=== PATIENT | female | born 1990 | race Caucasian/White ===

== ENCOUNTER 2018-05-09 11:00 | Emergency (ER) | payer MEDICAID, OTHER ==
[~2018-05-09] VITALS: Ht 160 cm; Wt 149.7 kg
[~2018-05-09 11:00] MED LIST: ACHD5005 PO; BISA5TAB20 PO; CETI10TA17 PO; DCS100C PO; IBP600T1 PO; METR500T PO; ONDA-42 PO; ONDAN4ODT PO; OXYC-12 PO; PREN1TAB39 PO; PRM25T PO; RNT150T PO
[2018-05-09] MEDS ORDERED: fentaNYL INJECTION 100 MCG/2 ML AMP IVP STA (11:49)
[2018-05-09] MEDS ORDERED: NS IV 1000 ML 1,000 ML IV ONE (11:49)
[2018-05-09 12:01] LABS: BASOPHILS % (AUTO) 0 % (0-10); EOSINOPHILS # (AUTO) 0.3 10^3/uL (0.0-0.3); EOSINOPHILS % (AUTO) 3 % (0-10); HEMATOCRIT 43 % (35-52); HEMOGLOBIN 14.8 G/DL (11.5-16.0); LYMPHOCYTES # (AUTO) 3.7 X 10^3 (1.0-4.0); LYMPHOCYTES % (AUTO) 32 % (12-44); MEAN CORPUSCULAR HEMOGLOBIN 31 PG (25-34); MEAN CORPUSCULAR HGB CONC 35 G/DL (32-36); MEAN CORPUSCULAR VOLUME 90 FL (80-99); MEAN PLATELET VOLUME 10.9 FL (7.4-10.4); MONOCYTES # (AUTO) 0.8 X 10^3 (0.0-1.0); MONOCYTES % (AUTO) 7 % (0-12); NEUTROPHILS # (AUTO) 6.7 X 10^3 (1.8-7.8); NEUTROPHILS % (AUTO) 58 % (42-75); PLATELET COUNT 299 10^3/uL (130-400); RED BLOOD COUNT 4.74 10^6/uL (4.35-5.85); RED CELL DISTRIBUTION WIDTH 13.5 % (10.0-14.5); WHITE BLOOD COUNT 11.6 10^3/uL (4.3-11.0)
[2018-05-09 12:02] LABS: BILIRUBIN,URINE NEGATIVE (NEGATIVE); CLARITY,URINE CLEAR; COLOR,URINE YELLOW; GLUCOSE, URINE (UA) NEGATIVE (NEGATIVE); KETONES,URINE NEGATIVE (NEGATIVE); LEUKOCYTE ESTERASE ,URINE NEGATIVE (NEGATIVE); NITRITE,URINE NEGATIVE (NEGATIVE); PH,URINE 5 (5-9); PROTEIN,URINE 1+ (NEGATIVE); UROBILINOGEN,URINE NORMAL (NORMAL)
--- NOTE | 2018-05-09 12:06 | ED Abdominal Pain ---
General Chief Complaint: Abdominal/GI Problems Stated Complaint: ABD PAIN Nursing Triage Note: pt presents to ed with complaints of l upper abdominal pain starting this am. pt reports she has had daily nausea and vomiting in the morning for years but has never seen the doctor for it. Sepsis Screen: No Definite Risk Source of Information: Patient Exam Limitations: No Limitations (STEVE GOLDBERG) History of Present Illness Date Seen by Provider: May 09, 2018 Time Seen by Provider: 11:47 Initial Comments Seen and evaluated. Patient presents for LLQ pain that began upon waking at 1000. The patient describes the pain as a constant dull pain that radiates to her left lower back and sporadically intensifies with a cramping sensation. She took a hot shower without relief and has found that nothing today has made it worse. Patient is tender to palpation of the right upper quadrant. She is diaphoretic and admits sensitivity to light and eye tearing. She states that she has vomited every morning for the last three years. She denies nausea, diarrhea, constipation, or vaginal discharge. She is currently sexually active in a monogamous relationship. Patient has had a previous cesarian section. Patient had a spontaneous last November, after which her menstrual cycles have stopped. Timing/Duration: 1-3 Hours Severity/Quality: Moderate, Dull, Throbbing Location: LLQ Radiation: Back (Left lower back) Activities at Onset: Rest (Awoke with pain) Associated Symptoms: Back Pain; No Chest Pain; Diaphoresis; No Fever/Chills; Headache (Sensitivity to light), Shortness of Air (Finds it harder to breathe when pain intensifies) (STEVE GOLDBERG STUDENT) Allergies and Home Medications Allergies Coded Allergies: No Known Drug Allergies (Unverified , 12/18/10) Home Medications Hydrocodone Bit/Acetaminophen 1 Each Tablet, 1-2 EACH PO Q4H PRN for PAIN Prescribed by: ZEUS JACOBSON on 12/19/15 1455 Levofloxacin 500 Mg Tablet, 500 MG PO DAILY Prescribed by: THERESA SALINAS on 05/09/18 1358 Vits W-Ca,Fe,Fa(<1MG) 1 Each Tablet, 1 EACH PO DAILY, (Reported) Patient Home Medication List Home Medication List Reviewed: Yes (STEVE GOLDBERG) Home Medication List Reviewed: Yes (THERESA SALINAS MD) Review of Systems Constitutional: diaphoresis EENTM: Eye Tearing Respiratory: Shortness of Air (Shortness of breath with increases to pain.) Cardiovascular: No Symptoms Reported Gastrointestinal: Abdominal Pain; Denies Constipated, Denies Diarrhea, Denies Nausea, Denies Rectal Bleeding; Vomiting Genitourinary: Denies Burning, Denies Discharge, Denies Drainage Musculoskeletal: back pain Skin: no symptoms reported Psychiatric/Neurological: Headache (Sensitivity to light) Endocrine: Excessive Sweating Hematologic/Lymphatic: No Symptoms Reported (STEVE GOLDBERG) Constitutional: see HPI; No fever Respiratory: Denies Cough Cardiovascular: Denies Chest Pain, Denies Palpitations Gastrointestinal: Abdominal Pain, Vomiting Musculoskeletal: back pain; No neck pain Skin: no symptoms reported Psychiatric/Neurological: No Symptoms Reported (THERESA SALINAS MD) All Other Systems Reviewed Negative Unless Noted: Yes (THERESA SALINAS MD) Past Knavwlw-Fjdxgp-Fdswpc Hx Past Med/Social Hx: Reviewed Nursing Past Med/Soc Hx (THERESA SALINAS MD) Patient Social History Alcohol Use: Denies Use Recreational Drug Use: No Smoking Status: Former Smoker Type Used: Cigarettes Former Smoker, Quit: May 03, 2018 Recent Foreign Travel: No Contact w/Someone Who Travel: No Recent Infectious Disease Expo: No Recent Hopitalizations: Yes Physical Abuse: No Sexual Abuse: No Mistreated: No Fear: No (STEVE GOLDBERG) Immunizations Up To Date Tetanus Booster (TDap): Less than 5yrs PED Vaccines UTD: No Date of Influenza Vaccine: Jul 07, 2014 (STEVE GOLDBERG) Past Medical History Surgeries: Yes (KNEE SURGERY/JAW SURGERY, C/S X2) Section Respiratory: No Cardiac: No Neurological: No Reproductive Disorders: Yes (PSOS ) Female Reproductive Disorders: Menstrual Problems (Has not had menstrual cycle since November 2016) Gastrointestinal: No Musculoskeletal: No Endocrine: No Loss of Vision: Denies Cancer: No Psychosocial: No Nursing Suicide Risk Score: 0 Integumentary: No (ECZEMA ON NECK) Eczema Blood Disorders: No (STEVE GOLDBERG) Family Medical History Reviewed Nursing Family Hx (THERESA SALINAS MD) No Family History of: AIDS Abdominal aortic aneurysm Alcoholism Alzheimer's disease Arthritis Asthma Cardiovascular disease Cataracts Colon cancer Completed stroke Dementia Diabetes mellitus Drug abuse Hypertension Kidney disease Myocardial infarction Parkinson's disease Prostate cancer Psychosocial problem Respiratory disorder Seizure disorder Thyroid disease Physical Exam Vital Signs Vital Signs - First Documented 05/09/18 11:25 Temp 96.2 Pulse 60 Resp 20 B/P (MAP) 136/72 (93) Pulse Ox 96 (THERESA SALINAS MD) Vital Signs Capillary Refill : Less Than 3 Seconds (STEVE GOLDBERG STUDENT) Height/Weight/BMI Height: 5'3.00" Weight: 330lbs. oz. 149.868473ep; 49.21 BMI Method:Stated General Appearance: moderate distress, obese HEENT: photophobia; No pharyngeal erythema, No tonsillar exudate Neck: No lymphadenopathy (R), No lymphadenopathy (L) Cardiovascular: normal peripheral pulses Peripheral Pulses: 2+ Dorsalis Pedis (R), 2+ Left Dors-Pedis (L), 2+ Radial Pulses (R), 2+ Radial Pulses (L) Gastrointestinal: No non tender, No abnormal bowel sounds, No guarding; tenderness (tender to palpation RUQ) Skin: diaphoresis (STEVE GOLDBERG STUDENT) General Appearance: WD/WN, obese Respiratory: lungs clear, normal breath sounds Cardiovascular: regular rate, rhythm, no murmur Extremities: non-tender, normal inspection Back: normal inspection, no CVA tenderness, no vertebral tenderness Neurologic/Psychiatric: alert, oriented x 3 Skin: normal color (THERESA SALINAS MD) Progress/Results/Core Measures Results/Orders Lab Results Laboratory Tests Test 05/09/18 11:19 Range/Units White Blood Count 11.6 H 4.3-11.0 10^3/uL Red Blood Count 4.74 4.35-5.85 10^6/uL Hemoglobin 14.8 11.5-16.0 G/DL Hematocrit 43 35-52 % Mean Corpuscular Volume 90 80-99 FL Mean Corpuscular Hemoglobin 31 25-34 PG Mean Corpuscular Hemoglobin Concent 35 32-36 G/DL Red Cell Distribution Width 13.5 10.0-14.5 % Platelet Count 299 130-400 10^3/uL Mean Platelet Volume 10.9 H 7.4-10.4 FL Neutrophils (%) (Auto) 58 42-75 % Lymphocytes (%) (Auto) 32 12-44 % Monocytes (%) (Auto) 7 0-12 % Eosinophils (%) (Auto) 3 0-10 % Basophils (%) (Auto) 0 0-10 % Neutrophils # (Auto) 6.7 1.8-7.8 X 10^3 Lymphocytes # (Auto) 3.7 1.0-4.0 X 10^3 Monocytes # (Auto) 0.8 0.0-1.0 X 10^3 Eosinophils # (Auto) 0.3 0.0-0.3 10^3/uL Basophils # (Auto) 0.0 0.0-0.1 10^3/uL Urine Color YELLOW Urine Clarity CLEAR Urine pH 5 5-9 Urine Specific Elsie 1.025 H 1.016-1.022 Urine Protein 1+ H NEGATIVE Urine Glucose (UA) NEGATIVE NEGATIVE Urine Ketones NEGATIVE NEGATIVE Urine Nitrite NEGATIVE NEGATIVE Urine Bilirubin NEGATIVE NEGATIVE Urine Urobilinogen NORMAL NORMAL MG/DL Urine Leukocyte Esterase NEGATIVE NEGATIVE Urine RBC (Auto) NEGATIVE NEGATIVE Urine RBC NONE /HPF Urine WBC 0-2 /HPF Urine Squamous Epithelial Cells 2-5 /HPF Urine Renal Epithelial Cells NONE /HPF Urine Crystals PRESENT H /LPF Urine Calcium Oxalate Crystals FEW H /LPF Urine Bacteria NEGATIVE /HPF Urine Casts PRESENT /LPF Urine Hyaline Casts 2-5 H /LPF Urine Mucus MODERATE H /LPF Urine Culture Indicated NO Sodium Level 137 135-145 MMOL/L Potassium Level 4.1 3.6-5.0 MMOL/L Chloride Level 106 98-107 MMOL/L Carbon Dioxide Level 22 21-32 MMOL/L Anion Gap 9 5-14 MMOL/L Blood Urea Nitrogen 7 7-18 MG/DL Creatinine 0.80 0.60-1.30 MG/DL Estimat Glomerular Filtration Rate > 60 BUN/Creatinine Ratio 9 Glucose Level 112 H 70-105 MG/DL Calcium Level 9.3 8.5-10.1 MG/DL Corrected Calcium 9.6 8.5-10.1 MG/DL Total Bilirubin 0.3 0.1-1.0 MG/DL Aspartate Amino Transf (AST/SGOT) 20 5-34 U/L Alanine Aminotransferase (ALT/SGPT) 21 0-55 U/L Alkaline Phosphatase 53 40-136 U/L Total Protein 6.7 6.4-8.2 GM/DL Albumin 3.6 3.2-4.5 GM/DL Lipase 32 8-78 U/L (THERESA SALINAS MD) My Orders Orders - THERESA SALINAS MD Cbc With Automated Diff (05/09/18 11:49) Comprehensive Metabolic Panel (05/09/18 11:49) Lipase (05/09/18 11:49) Ua Culture If Indicated (05/09/18 11:49) Urine Bedside (05/09/18 11:49) Saline Lock/Iv-Start (05/09/18 11:49) Ns Iv 1000 Ml (Sodium Chloride 0.9%) (05/09/18 11:49) Fentanyl Injection (Sublimaze Injection (05/09/18 11:49) Us Gallbladder [id number] (05/09/18 13:12) (THERESA SALINAS MD) Medications Given in ED Current Medications Medications Dose Ordered Sig/Cynthia Route Start Time Stop Time Status Last Admin Dose Admin Sodium Chloride 1,000 ml @ 0 mls/hr Q0M ONCE IV 05/09/18 11:49 05/09/18 11:55 DC 05/09/18 12:13 0 MLS/HR (THERESA SALINAS MD) Vital Signs/I&O 05/09/18 11:25 Temp 96.2 Pulse 60 Resp 20 B/P (MAP) 136/72 (93) Pulse Ox 96 (THERESA SALINAS MD) Blood Pressure Mean: 93 Progress Progress Note : Progress Note Seen and evaluated the patient and agree with above except as indicated. I have directed the plan of care. Patient is here with complaints of vomiting and left sided abdominal pain but actually appears to be more right upper quadrant, pain. Does note that she's had vomiting daily for years and also has had some change in stools recently with orange color stool. Has noted that she has increased right upper quadrant abdominal pain daily but does not appear to be associated with food but she is not sure. Denies fever currently. Physical exam does elicit mild right upper quadrant abdominal pain. Not significantly tender in the left side. IV, labs, UA, UCG ordered. Fentanyl 50 g IV ordered. Normal saline 1 L bolus. Patient doing a little better afterwards but still has the right upper quadrant abdominal pain. We will get a ultrasound of the right upper quadrant to evaluate gallbladder. 1345: Gallbladder ultrasound complete and multiple stones noted. I did discuss the case with Dr. Martin. He would like to have her do outpatient antibiotics and liquids and then follow-up with him this week for recheck and cholecystectomy soon. This was discussed with the patient and family and they agree. Discharged home with return precautions. Patient verbalize understanding instructions and agreement with plan. (THERESA SALINAS MD) Diagnostic Imaging Diagonstic Imaging: Ultrasound Plain Films/CT/US/NM/MRI: abdomen Comments VIA [facility]. [place], [place] NAME: SEAN [facility]EZMA [facility] REC#: [id number] PT STATUS: REG ER : 1990 PHYSICIAN: THERESA SALINAS MD ADMIT DATE: 05/09/18/ER Draft Date of Exam:05/09/18 US GALLBLADDER [id number] PROCEDURE: US Gallbladder. TECHNIQUE: Multiple real-time grayscale images were obtained over the right upper quadrant in various projections. INDICATION: Upper abdominal pain. FINDINGS: The liver is enlarged at 21 cm. No discrete liver mass is identified. The main portal vein is patent and shows normal directional flow. The gallbladder appears to be stone filled. No wall thickening is seen. No definite biliary ductal dilatation is seen. Pancreas is obscured by bowel gas. The right kidney is unremarkable. There is no ascites. IMPRESSION: 1. Hepatomegaly. 2. Stone-filled gallbladder. No definite wall thickening to suggest cholecystitis is seen, however. Dictated on workstation # [id number] Dict: 05/09/18 1357 Trans: 05/09/18 1403 [id number] Interpreted by: CRISTOBAL GRAHAM MD Electronically signed by: Reviewed: Reviewed by Me (THERESA SALINAS MD) Departure Impression Primary Impression: Cholelithiasis Qualified Codes: K80.20 - Calculus of gallbladder without cholecystitis without obstruction Disposition: 01 HOME, SELF-CARE Condition: Stable Departure-Patient Inst. Decision time for Depature: 13:55 (THERESA SALINAS MD) Referrals: PAIGE BARNES DO (PCP/Family) Primary Care Physician RAMYA MARITN DO Patient Instructions: Gallstones (DC) Add. Discharge Instructions: All discharge instructions reviewed with patient and/or family. Voiced understanding. Clear liquid or very light diet for the next 2-3 days. Follow-up with Dr. Martin in the next 2-3 days for recheck and further evaluation. Take medications as directed. You may take Tylenol/acetaminophen 1000 mg every 6 hours as needed for pain. Return for worse pain, fever, vomiting, weakness, breathing problems or other concerns as needed. Scripts Levofloxacin (Levofloxacin) 500 Mg Tablet 500 MG PO DAILY, #7 TAB 0 Refills Prov: THERESA SALINAS MD 05/09/18 Copy Copies To 1: RAMYA MARTIN JOSHUA MED STUDENT May 09, 2018 12:06 THERESA SALINAS MD May 09, 2018 13:17
[2018-05-09 12:16] LABS: BACTERIA,URINE NEGATIVE /HPF; CALCIUM OXALATE CRYSTALS,UR FEW /LPF; WBC,URINE 0-2 /HPF
[2018-05-09 12:22] LABS: ALANINE AMINOTRANSFERASE 21 U/L (0-55); ALBUMIN 3.6 GM/DL (3.2-4.5); ALKALINE PHOSPHATASE 53 U/L (40-136); BILIRUBIN,TOTAL 0.3 MG/DL (0.1-1.0); BUN/CREATININE RATIO 9; CALCIUM 9.3 MG/DL (8.5-10.1); CARBON DIOXIDE 22 MMOL/L (21-32); CHLORIDE 106 MMOL/L (98-107); GFR ESTIMATED > 60; GLUCOSE 112 MG/DL (70-105); LIPASE 32 U/L (8-78); POTASSIUM 4.1 MMOL/L (3.6-5.0); SODIUM 137 MMOL/L (135-145); TOTAL PROTEIN 6.7 GM/DL (6.4-8.2)
[2018-05-09] MEDS ORDERED: LEVO500T80 PO (13:58)
--- NOTE | 2018-05-09 14:04 | Diagnostic Imaging Report ---
PROCEDURE: US Gallbladder. TECHNIQUE: Multiple real-time grayscale images were obtained over the right upper quadrant in various projections. INDICATION: Upper abdominal pain. FINDINGS: The liver is enlarged at 21 cm. No discrete liver mass is identified. The main portal vein is patent and shows normal directional flow. The gallbladder appears to be stone filled. No wall thickening is seen. No definite biliary ductal dilatation is seen. Pancreas is obscured by bowel gas. The right kidney is unremarkable. There is no ascites. IMPRESSION: 1. Hepatomegaly. 2. Stone-filled gallbladder. No definite wall thickening to suggest cholecystitis is seen, however. Dictated by: Dictated on workstation # [id number]
[2018-05-09 14:22] VITALS: BP 123/47
[2018-05-18] MEDS ORDERED: DOCU-143 PO (12:30)
[2018-05-18] MEDS ORDERED: ACHD5005 PO (12:30)
== END 2018-05-09 14:22 | disposition home or self-care (01) ==
LOC: EDUNIT# 11:00 → ER 11:03
DX: K80.20 Calculus of gallbladder without cholecystitis without obstruction (principal); Z87.59 Personal history of other complications of pregnancy, childbirth and the puerperium; Z87.891 Personal history of nicotine dependence
CPT/HCPCS: 36415; 76705; 80053; 81000; 83690; 84703; 85025; 96361; 96374

== ENCOUNTER 2018-05-16 06:31 | Outpatient (CLI) | payer OTHER ==
[~2018-05-16] VITALS: Ht 160 cm; Wt 149.7 kg
[~2018-05-16 06:31] MED LIST changes: +LEVO500T80 PO
[2018-05-18] MEDS ORDERED: ACHD5005 PO (12:30)
[2018-05-18] MEDS ORDERED: DOCU-143 PO (12:30)
== END 2018-05-16 15:58 | disposition home or self-care (01) ==
LOC: PREOP 06:31
PROVIDERS: ATTEND Surgery
DX: Z01.818 Encounter for other preprocedural examination (principal)

== ENCOUNTER 2023-02-16 16:45 | Emergency (ER) | payer SELFPAY ==
[~2023-02-16] VITALS: Ht 160 cm; Wt 142.0 kg
[~2023-02-16 16:45] MED LIST changes: +DOCU-143 PO; +LEVO-55 PO; -LEVO500T80 PO
--- NOTE | 2023-02-16 17:31 | ED GU-Female ---
General Chief Complaint: OB < 20 WEEKS Stated Complaint: 8 WEEKS |BLEEDING Nursing Triage Note: TO TRIAGE WITH COMPLAINTS OF VAGINAL BLEEDING STARTING APPX 30 MINS AGO. PT IS 8 WEEKS GESTATION. PT ALSO COMPLAINS OF BACK PAIN. Source: patient Exam Limitations: no limitations (CARA CHILEL MD) History of Present Illness Date Seen by Provider: February 16, 2023 Time Seen by Provider: 17:18 Initial Comments Patient is a 32-year-old female A1 with 2 living children who presents to the emergency room with a chief complaint of vaginal bleeding. Patient is not certain of the exact date of her last menstrual cycle but remembers that she was having her menstrual cycle on December 20. She came to work at 3:00 and noticed about an hour later that she started having some vaginal bleeding/spotting. She states it is a mix between brownish blood and bright red blood. No cramping or pain. She denies dysuria, urgency or frequency. No recent illnesses. No recent traumas, she did not start bleeding after intercourse. She did have a tiny bit of spotting last weekend after intercourse but that spontaneously resolved. Prior had history complicated by premature delivery at 27 weeks of her first child via due to placenta previa. That baby at 3 months of age. She has 2 living children 8 years old and 10 years old. 1 suspected miscarriage after those pregnancies. She has a history of polycystic ovarian syndrome, she is on metformin for "insulin resistance". She has not sought care yet. Timing/Duration: just prior to arrival Severity/Quality: mild Activities at Onset: physical activity (Work) Sexual Puhi History: single partner Associated Symptoms: lower back pain (CARA CHILEL MD) Allergies and Home Medications Allergies Coded Allergies: No Known Drug Allergies (Unverified , 05/16/18) Patient Home Medication List Home Medication List Reviewed: Yes (CARA CHILEL MD) Cefdinir (Cefdinir) 300 Mg Capsule, 300 MG PO BID Prescribed by: LEIGHA CANDELARIA on 02/16/231814 Docusate Sodium (Colace) 100 Mg Capsule, 100 MG PO DAILY Prescribed by: RAMYA MARTIN on 05/18/18 1230 Hydrocodone Bit/Acetaminophen (Lortab 5 Mg Tablet) 1 Tab Tab, 1 TAB PO Q4H PRN Prescribed by: RAMYA MARTIN on 05/18/18 1230 Review of Systems Review of Systems Constitutional: see HPI Respiratory: no symptoms reported Cardiovascular: no symptoms reported Gastrointestinal: no symptoms reported Genitourinary: other (Vaginal spotting/bleeding) : Yes Expected Date of Delivery: Sep 25, 2023 LMP: Dec 18, 2022 Musculoskeletal: back pain (low back discomfort) Skin: no symptoms reported Psychiatric/Neurological: No Symptoms Reported (CARA CHILEL MD) Past Hjystxb-Odvbrf-Ivbgqq Hx Patient Social History Tobacco Use?: No Substance use?: No Alcohol Use?: No (CARA CHILEL MD) Immunizations Up To Date Tetanus Booster (TDap): Less than 5yrs PED Vaccines UTD: No (CARA CHILEL MD) Seasonal Allergies Seasonal Allergies: Yes (CARA CHILEL MD) Past Medical History Surgeries: Yes (KNEE SURGERY/JAW SURGERY, C/S X2) Section Respiratory: No Cardiac: No Neurological: No Reproductive Disorders: Yes Female Reproductive Disorders: Menstrual Problems, Polycystic Ovarian Dis Sexually Transmitted Disease: No HIV/AIDS: No Gastrointestinal: No Gall Bladder Disease Musculoskeletal: No Endocrine: No Loss of Vision: Denies Hearing Impairment: Denies Cancer: No Psychosocial: No Integumentary: No (ECZEMA ON NECK) Eczema Blood Disorders: No Adverse Reaction/Blood Tranf: No (N/A) (CARA CHILEL MD) Family Medical History No Family History of: AIDS Abdominal aortic aneurysm Alcoholism Alzheimer's disease Arthritis Asthma Cardiovascular disease Cataracts Colon cancer Completed stroke Dementia Diabetes mellitus Drug abuse Hypertension Kidney disease Myocardial infarction Parkinson's disease Prostate cancer Psychosocial problem Respiratory disorder Seizure disorder Thyroid disease Physical Exam Vital Signs Vital Signs - First Documented 02/16/23 17:00 Temp 36.8 Pulse 69 Resp 16 B/P (MAP) 148/94 (112) Pulse Ox 97 O2 Delivery Room Air (TEAGANAVTARA Brian DO) Vital Signs Capillary Refill : Less Than 3 Seconds (CARA CHILEL MD) Height, Weight, BMI Height: 5'3.00" Weight: 335lbs. 0.0oz. 151.432486jn; 55.00 BMI Method:Stated General Appearance: WD/WN, mild distress (tearful), obese HEENT: PERRL/EOMI Cardiovascular: regular rate, rhythm Respiratory: lungs clear, normal breath sounds, no respiratory distress, no accessory muscle use Gastrointestinal: non tender, soft, other (obeses, large pannus) Extremities: normal range of motion, normal inspection, normal capillary refill Neurologic/Psychiatric: alert, oriented x 3, depressed affect Skin: normal color, warm/dry (CARA CHILEL MD) Progress/Results/Core Measures Suspected Sepsis SIRS Temperature: Pulse: 69 Respiratory Rate: 16 Blood Pressure 148 /94 Mean: 112 (CARA CHILEL MD) Results/Orders Lab Results Laboratory Tests Test 02/16/23 17:35 02/16/23 17:55 Range/Units White Blood Count 11.3 H 4.3-11.0 10^3/uL Red Blood Count 4.73 3.80-5.11 10^6/uL Hemoglobin 14.4 11.5-16.0 g/dL Hematocrit 44 35-52 % Mean Corpuscular Volume 92 80-99 fL Mean Corpuscular Hemoglobin 30 25-34 pg Mean Corpuscular Hemoglobin Concent 33 32-36 g/dL Red Cell Distribution Width 13.1 10.0-14.5 % Platelet Count 277 130-400 10^3/uL Mean Platelet Volume 10.3 9.0-12.2 fL Immature Granulocyte % (Auto) 0 % Neutrophils (%) (Auto) 66 42-75 % Lymphocytes (%) (Auto) 26 12-44 % Monocytes (%) (Auto) 6 0-12 % Eosinophils (%) (Auto) 2 0-10 % Basophils (%) (Auto) 1 0-10 % Neutrophils # (Auto) 7.4 1.8-7.8 10^3/uL Lymphocytes # (Auto) 2.9 1.0-4.0 10^3/uL Monocytes # (Auto) 0.7 0.0-1.0 10^3/uL Eosinophils # (Auto) 0.2 0.0-0.3 10^3/uL Basophils # (Auto) 0.1 0.0-0.1 10^3/uL Immature Granulocyte # (Auto) 0.1 0.0-0.1 10^3/uL Sodium Level 139 135-145 MMOL/L Potassium Level 4.4 3.6-5.0 MMOL/L Chloride Level 105 98-107 MMOL/L Carbon Dioxide Level 24 21-32 MMOL/L Anion Gap 10 5-14 MMOL/L Blood Urea Nitrogen 8 7-18 MG/DL Creatinine 0.84 0.60-1.30 MG/DL Estimat Glomerular Filtration Rate 94 BUN/Creatinine Ratio 10 Glucose Level 98 70-105 MG/DL Calcium Level 9.4 8.5-10.1 MG/DL Human Chorionic Gonadotropin, Quant 280 H <5 MIU/ML Urine Color YELLOW Urine Clarity SL CLOUDY Urine pH 6.0 5-9 Urine Specific [place] >=1.030 1.016-1.022 Urine Protein 1+ H NEGATIVE Urine Glucose (UA) NEGATIVE NEGATIVE Urine Ketones NEGATIVE NEGATIVE Urine Nitrite NEGATIVE NEGATIVE Urine Bilirubin NEGATIVE NEGATIVE Urine Urobilinogen 1.0 < = 1.0 MG/DL Urine Leukocyte Esterase NEGATIVE NEGATIVE Urine RBC (Auto) 3+ H NEGATIVE Urine RBC NONE /HPF Urine WBC 5-10 H /HPF Urine Squamous Epithelial Cells 10-25 H /HPF Urine Crystals PRESENT H /LPF Urine Amorphous Sediment FEW NAHUM URATES H /LPF Urine Bacteria FEW H /HPF Urine Casts NONE /LPF Urine Mucus MODERATE H /LPF Urine Culture Indicated YES (LEIGHA CANDELARIA DO) Vital Signs/I&O 02/16/23 17:00 Temp 36.8 Pulse 69 Resp 16 B/P (MAP) 148/94 (112) Pulse Ox 97 O2 Delivery Room Air (LEIGHA CANDELARIA DO) Vital Signs/I&O Capillary Refill : Less Than 3 Seconds (CARA CHILEL MD) Blood Pressure Mean: 112 Progress Note : Progress Note 1800--ASSUMED CARE FROM DR. CHILEL. ALL LAB PENDING AT THIS TIME. PT TALKING ON PHONE BLOOD TYPE IS A+ NO PAIN AT ANY TIME DURING ER STAY PT DID NOT GO THROUGH ANY PADS DURING ER STAY QUANT B HCG IS 280 TODAY NO INDICATION FOR EMERGENT ULTRASOUND BASED ON THE ABOVE. REVIEWED TEST RESULTS, ANTICIPATED COURSE, ACTIVITY RESTRICTIONS, NEED FOR FOLLOW UP AND RETURN PRECAUTIONS (LEIGHA CANDELARIA DO) Departure Impression Primary Impression: Vaginal bleeding in patient at less than 20 weeks gestation Additional Impression: Urinary tract infection Disposition: 01 HOME, SELF-CARE Condition: Stable Departure-Patient Inst. Decision time for Depature: 18:14 (LEIGHA CANDELARIA DO) Referrals: JEFERSON ADAMS APRN (PCP) Primary Care Physician Patient Instructions: Threatened Miscarriage (DC), Urinary Tract Infection, Adult (DC) Add. Discharge Instructions: NOTHING IN VAGINA--NO TAMPONS, DOUCHING OR INTERCOURSE KEEP AN ACCURATE PAD COUNT--RETURN TO ER IF SOAKING MORE THAN 1 MAXI PAD AN HOUR LOTS OF FLUIDS FOLLOW UP WITH YOUR DR TOMORROW OR MONDAY FOR REPEAT LAB. All discharge instructions reviewed with patient and/or family. Voiced understanding. Scripts Cefdinir (Cefdinir) 300 Mg Capsule 300 MG PO BID, #20 CAP Prov: LEIGHA CANDELARIA DO 02/16/23 CARA CHILEL MD February 16, 2023 17:31 LEIGHA CANDELARIA DO February 16, 2023 17:56
[2023-02-16 17:40] LABS: BASOPHILS # (AUTO) 0.1 10^3/uL (0.0-0.1); BASOPHILS % (AUTO) 1 % (0-10); EOSINOPHILS # (AUTO) 0.2 10^3/uL (0.0-0.3); EOSINOPHILS % (AUTO) 2 % (0-10); HEMATOCRIT 44 % (35-52); HEMOGLOBIN 14.4 g/dL (11.5-16.0); LYMPHOCYTES # (AUTO) 2.9 10^3/uL (1.0-4.0); LYMPHOCYTES % (AUTO) 26 % (12-44); MEAN CORPUSCULAR HEMOGLOBIN 30 pg (25-34); MEAN CORPUSCULAR HGB CONC 33 g/dL (32-36); MEAN CORPUSCULAR VOLUME 92 fL (80-99); MEAN PLATELET VOLUME 10.3 fL (9.0-12.2); MONOCYTES # (AUTO) 0.7 10^3/uL (0.0-1.0); MONOCYTES % (AUTO) 6 % (0-12); NEUTROPHILS # (AUTO) 7.4 10^3/uL (1.8-7.8); NEUTROPHILS % (AUTO) 66 % (42-75); PLATELET COUNT 277 10^3/uL (130-400); WHITE BLOOD COUNT 11.3 10^3/uL (4.3-11.0)
[2023-02-16 17:53] LABS: POTASSIUM 4.4 MMOL/L (3.6-5.0)
[2023-02-16 17:54] LABS: CALCIUM 9.4 MG/DL (8.5-10.1)
[2023-02-16 17:59] LABS: CREATININE SERUM 0.84 MG/DL (0.60-1.30)
[2023-02-16 18:04] LABS: BILIRUBIN,URINE NEGATIVE (NEGATIVE); CLARITY,URINE SL CLOUDY; COLOR,URINE YELLOW; GLUCOSE, URINE (UA) NEGATIVE (NEGATIVE); KETONES,URINE NEGATIVE (NEGATIVE); LEUKOCYTE ESTERASE ,URINE NEGATIVE (NEGATIVE); NITRITE,URINE NEGATIVE (NEGATIVE); PROTEIN,URINE 1+ (NEGATIVE)
[2023-02-16 18:12] LABS: AMORPHOUS SEDIMENT,UR FEW AMOR URATES /LPF; BACTERIA,URINE FEW /HPF
[2023-02-16] MEDS ORDERED: CEFD300C3 PO (18:15)
[2023-02-16 18:34] VITALS: BP 126/82
== END 2023-02-16 18:38 | disposition home or self-care (01) ==
LOC: EDUNIT# 16:45 → ER 16:48
DX: O20.9 Hemorrhage in early pregnancy, unspecified (principal); O23.41 Unspecified infection of urinary tract in pregnancy, first trimester; N39.0 Urinary tract infection, site not specified; Z3A.08 8 weeks gestation of pregnancy
CPT/HCPCS: 36415; 80048; 81000; 84702; 85025; 87088

== ENCOUNTER → 2023-02-21 | Outpatient (CLI) | payer OTHER ==
[~2023-02-21] MED LIST changes: +CEFD300C3 PO
[2023-02-21 08:35] LABS: HEMATOCRIT 41 % (35-52); MEAN CORPUSCULAR HEMOGLOBIN 31 pg (25-34); MEAN CORPUSCULAR HGB CONC 34 g/dL (32-36); MEAN CORPUSCULAR VOLUME 91 fL (80-99); MEAN PLATELET VOLUME 10.1 fL (9.0-12.2); PLATELET COUNT 267 10^3/uL (130-400); WHITE BLOOD COUNT 11.7 10^3/uL (4.3-11.0)
== END ==
LOC: LAB 08:09
PROVIDERS: ATTEND Nurse Practitioner Family
DX: O20.0 Threatened abortion (principal); Z3A.00 Weeks of gestation of pregnancy not specified
CPT/HCPCS: 36415; 84144; 84702; 84703; 85027

== ENCOUNTER → 2023-02-24 | Outpatient (CLI) | payer OTHER ==
[~2023-02-24] VITALS: Ht 160 cm; Wt 142.0 kg
[~2023-02-24] MED LIST changes: +METHOTREXATE 50 MG/2 ML PF IM ONE; +METHOTREXATE 50 MG/2 ML PF IV ONE
[2023-02-24 13:10] VITALS: BP 94/68
== END ==
LOC: SDC 12:53
PROVIDERS: ATTEND Obstetrics & Gynecology
DX: O00.90 Unspecified ectopic pregnancy without intrauterine pregnancy (principal)
CPT/HCPCS: 96372